=== PATIENT | female | born 1985 | race Caucasian/White ===

== ENCOUNTER 2021-05-21 05:41 | Day surgery (SDC) | payer BC, SELFPAY ==
--- NOTE | 2021-05-13 16:11 | PCM.HP.BLA ---
History and Physical Date of Admission: 05/21/21 Hailey Cabrera MD Physician Specialty: ARCH SUPPORT TECHNICIAN H&P ? Signed Encounter Date: 04/28/2021 Expand AllCollapse All Expand All by Default Hide copied text Hover for details Pre-Op History and Physical ? HPI: The patient is a 36 year old female presenting for pre-operative visit. She is scheduled for , for BREECH, AMA, 39 weeks gestation on 05/14/21. Procedure discussed along with risks, benefits and complications. Other alternatives discussed for management. Consent form signed? Yes. ? ? PAST MEDICAL HISTORY PAST MEDICAL HISTORY Diagnosis Date ? Abnormal Pap smear of cervix ? ? Gestational diabetes mellitus, class A1 02/24/2021 ? History of abnormal Pap smear ? ? IBD (inflammatory bowel disease) ? ? ? PAST SURGICAL HISTORY PAST SURGICAL HISTORY Procedure Laterality Date ? COLONOSCOPY ? 08/15/13 ? ENDOSCOPY PROC ? 08/29/13 ? INSERT IUD ? 2013 ? mirena ? LASER BENIGN LESIONS VULVA ? 2013 ? OFFICE LEEP ? 08/04/11 ? VAGINOSCOPY ? 07/25/12 ? ? ? CURRENT MEDICATIONS Current Outpatient Medications Medication Sig Dispense Refill ? blood sugar diagnostic test strip 1 Strip four times daily. Use as instructed 120 Strip 9 ? Lancets lancets 1 Each four times daily. Use as instructed 120 Each 9 ? Urine Glucose-Ketones Test (KETO-DIASTIX) strp 1 Strip four times daily. 120 Strip 9 ? aspirin, enteric coated (ASPIRIN, ENTERIC COATED) 81 mg EC tablet Take 81 mg by mouth once daily. ? ? ? Nmixranr-Rc-Fes-Fe-FA ( VITAMIN) tab Take 1 tablet by mouth. ? ? ? No current facility-administered medications for this visit. ? ? ALLERGIES: Augmentin [Amoxicillin-Pot Clavulanate] ? PERSONAL HISTORY: SOCIAL HISTORY Social History ? Tobacco Use ? Smoking status: Never Smoker ? Smokeless tobacco: Never Used Vaping Use ? Vaping Use: Never used Substance Use Topics ? Alcohol use: Not Currently ? Drug use: No ? FAMILY HISTORY: FAMILY HISTORY FAMILY HISTORY Problem Relation Age of Onset ? Hypertension Mother ? ? Heart Father ? ? MYOCARDIAL INFARCTION ? Hypertension Father ? ? other (HYPERCHOLESTEROL) Father ? ? other (Ewings sarcoma) Brother ? ? Cancer Maternal Grandmother ? ? UTERINE CANCER ? Diabetes Maternal Grandmother ? ? other (blood clots) Maternal Grandmother ? ? other (CVA) Paternal Grandfather ? ? No Known Problems Maternal Grandfather ? ? No Known Problems Paternal Grandmother ? ? ? REVIEW OF SYMPTOMS: negative except as noted above PHYSICAL EXAMINATION: ? VITALS: Blood pressure 115/83, weight 192 lb (87.1 kg), last menstrual period 08/13/2020. ? GENERAL: The patient is well nourished, well hydrated in no acute distress. , The patient is oriented to time, place, and person. NECK: full range of motion GENITALIA: normal ABD: soft, gravid, non tender. FHR 120bpm ? IMPRESSION: @ 39 weeks EDC 05/20/21 - BREECH, AMA, GDMA1 ? PLAN: Declines ECV, planning for primary cs ? Pt has been counseled on risks/benefits and alternatives of surgery including but not limited to anesthesia, bleeding, infection, injury to pelvic structures including bowel, bladder, ureters and vessels. Pt wishes to proceed with surgery at this time. ? Will confirm breech day of surgery. ? ? I have reviewed and updated past medical and surgical history, medications and allergies Hailey Cabrera MD ?2:41 PM Hailey Cabrera MD Physician Specialty: ARCH SUPPORT TECHNICIAN H&P ? Signed Encounter Date: 05/13/2021 Expand AllCollapse All Expand All by Default Hide copied text Hover for details Pre-Op History and Physical ? HPI: The patient is a 35 year old female presenting for discussion regarding permanent sterilization. Pt currently on ocps- would like to continue with laparoscopic bilateral salpingectomy and continue OCPS for ovarian cyst suppression. ? She is scheduled for laparoscpic bilateral salpingectomy, for desires permanent sterilization on 05/21/21. Procedure discussed along with risks, benefits and complications. Other alternatives discussed for management. Consent form signed? Yes. ? ? PAST MEDICAL HISTORY PAST MEDICAL HISTORY Diagnosis Date ? Bilateral ovarian cysts ? ? ? PAST SURGICAL HISTORY PAST SURGICAL HISTORY Procedure Laterality Date ? DELIVERY ONLY ? 09/19/14 ? , low transverse ? PAST SURGICAL HISTORY OF ? ? ? lazy eye repair ? REMOVAL OF TONSILS,<12 Y/O ? ? ? Tonsillectomy ? ? ? CURRENT MEDICATIONS Current Outpatient Medications Medication Sig Dispense Refill ? norgestimate 0.25 mg-ethinyl estradiol 35 mcg (SPRINTEC) 0.25-35 mg-mcg per tablet Take continuously as directed. 3 Package 6 ? No current facility-administered medications for this visit. ? ? ALLERGIES: Seasonal Allergies ? PERSONAL HISTORY: SOCIAL HISTORY Social History ? Tobacco Use ? Smoking status: Never Smoker ? Smokeless tobacco: Never Used Vaping Use ? Vaping Use: Never used Substance Use Topics ? Alcohol use: No ? Drug use: No ? FAMILY HISTORY: FAMILY HISTORY FAMILY HISTORY Problem Relation Age of Onset ? Lipids Father ? ? Diabetes Other ? ? MGGM ? ? REVIEW OF SYMPTOMS: negative except as noted above PHYSICAL EXAMINATION: ? VITALS: Blood pressure 102/60, height 5' 5 (1.651 m), weight 147 lb (66.7 kg), last menstrual period 03/22/2016. ? GENERAL: The patient is well nourished, well hydrated in no acute distress. , The patient is oriented to time, place, and person. NECK: full range of motion ? IMPRESSION: Desires permanent sterilization ? PLAN: Laparoscopic bilateral salpingectomy ? Pt has been counseled on risks/benefits and alternatives of surgery including but not limited to anesthesia, bleeding, infection, injury to pelvic structures including bowel, bladder, ureters and vessels. Pt wishes to proceed with surgery at this time. ? Risk of regret reviewed covid testing reviewed ? I have reviewed and updated past medical and surgical history, medications and allergies Hailey Cabrera MD ?3:34 PM Office Visit on 05/13/2021 Office Visit on 05/13/2021 Note shared with patient
[2021-05-20 17:30] LABS: Hematocrit 42.4 % (37-47); Hemoglobin 13.9 g/dL (12.0-15.0); Mean Corp Hgb Conc 32.8 g/dL (32-36); Mean Corpuscular Hgb 31.2 pg (27.0-32.0); Mean Corpuscular Volume 95.1 fL (81-99); Mean Platelet Vol. 11.4 fl (6.2-12.0); Platelet Count 303 K/mm3 (150-450); RBC Distribution Width CV 12.2 % (11.6-14.6); RBC Distribution Width SD 42.3 fl (35.1-43.9); Red Blood Count 4.46 M/mm3 (4.2-5.4); White Blood Count 6.8 K/mm3 (4.4-11.0)
[2021-05-21 06:07] LABS: Internal QC Validated? YES +Cl - CLEAR BKGD; Pregnancy, Urine Negative Negative
[2021-05-21 06:28] VITALS: BP 121/77; PULSE 80; RESP 16; TEMP 36.7; O2SAT 95; BMI 24.5
[2021-05-21] MEDS: Lactated Ringers 1,000 ML 100 ML IV (06:35)
--- NOTE | 2021-05-21 07:30 | FALS_PTH ---
PATIENT: ANDRES CAUSEY LOC: [facility] [place] U#:[id number] AGE/SX: 35/F ROOM: RE05/21/[address]: Dr. Hailey Mack, MDDOB: 1985 BED: DIS: 05/21/2021 SPEC #: [id number] RECD: 05/21/21 10:19 STATUS: JOHN KAJAL #: [id number] MITUL: 05/21/21 07:[address]: Hailey Mack DEPT: SURGICAL PATHOLOGY RECD BY: Yenny Guillaume ENTERED: 05/21/21 10:46 SP TYPE: FALL TUBES OTHR DR: Nisreen Primary Care Phys Tissues: Fallopian tube Procedures: Surgery Specimen Level II HEADER OPERATION: Laparoscopic salpingectomy PRE-OP DIAGNOSIS: Sterilization TISSUE SUBMITTED: Bilateral fallopian tubes MICROSCOPIC DIAGNOSIS Right and left fallopian tubes, bilateral salpingectomies: Complete segments of fallopian tubes. One fallopian tube with hemosalpinix. AM:winnie 05/22/2021 MICROSCOPIC DESCRIPTION Slides are reviewed. GROSS DESCRIPTION Received in fixative is one container labeled with the patient's name and designated bilateral fallopian tubes. The specimen consists of two fallopian tubes with an average length of 0.5 cm and has an average diameter of 0.5 cm. Both fallopian tubes have normal fimbriated ends. No mass lesions are identified. Wedger sections are submitted in two cassettes with each cassette containing one fallopian tube. / AM:winnie 05/21/21 TC:5 CPT: 03209 x2
[2021-05-21] MEDS: Bupivacaine Mpf 0.5% 30 ML VIAL (07:40)
[2021-05-21] MEDS: Lubricating Jelly 60 GM Tube 30 GM TOPICAL (07:40)
--- NOTE | 2021-05-21 08:00 | PCM.OPRPT ---
Problems Associated Problem List Diagnoses (1) Encounter for sterilization: (2) Adhesion of omentum: Report of Operation Date of Procedure: 05/21/21 Pre-Operative Diagnosis: desires sterilization Post-Operative Diagnosis: same, omental adhesions Surgery/Procedure Performed:: Lysis of adhesions, Laparoscopic bilateral salpingectomy Description of Surgical Findings:: Significant omental adhesions to the anterior abdominal wall into the anterior cul-de-sac. His adhesions to be lysed prior to the procedure. Once adhesions were taken down was able to visualize the uterus tubes and ovaries. Tubes and ovaries appeared normal bilaterally. Surgeon: Hailey Mack Type of Anesthesia: General and Local Special Medications: 0.5%marcaine Specimen's removed: bilateral fallopian tubes Drains: none Estimated Blood Loss (mL): 5 Fluids Replaced: 700 Description of Procedure: After informed consent was obtained patient was taken to the operating room she was placed in supine position she was given anesthesia. She was then placed in the [facility] stirrups and she was prepped and draped in normal sterile fashion. Bladder was drained prior to the start of procedure. At this time attention was turned to the vaginal portion where weighted speculum placed at posterior fornix vagina single-tooth tenaculum was used to gently grasp the internal the cervix. uterus was gently sounded to approximately 7 cm. Uterine manipulator was placed without difficulty. Legs then placed in parallel with the abdomen the tenaculum and the weighted speculum were removed. 2 towel clamps were placed at level of umbilicus. Marcaine was injected infraumbilical and a small incision was made. The 5 mm trocar was placed under direct visualization. CO2 gas was used to insufflate the intra-abdominal cavity. Upon inspection signficant omental adhesions present to anterior abdominal wall and anterior culdesac-At this time then the LLQ and RLQ ports were placed First Marcaine was injected and small incision was made a knife and the 5 mm trocars were placed. adhesions taken down with enseal and hemostasis appreciated. at this time the uterus tubes and ovaries were visualized and appeared to be normal. At this time then tubes were traced back to the fimbriated ends. Enseal was used to coagulate and ligate along mesosalpinx bilaterally until tubes removed completely. Good hemostasis was appreciated. At this time procedure was deemed complete successful. The gas was desufflated on from the intra-abdominal cavity. The trochars were removed. Skin was closed using 4-0 Monocryl in a subcutaneous fashion. Dermabond glue was placed. Instrument lap and needle counts were correct ?2. The uterine manipulator was removed. Vaginal sweep was performed it was negative. There were no complications anticipated normal postoperative course for this patient. Grafts/Implants Used: none Procedure Start Time: 07:40 Procedure Stop Time: 08:02 Complications none Admit VTE Documentation VTE Present on Admission: Yes VTE Mechan Device Prophylaxis: SCD's VTE Pharm Prophylaxis ordered?: No Reason prophylaxis not ordered:: Procedure Not Indicated
--- NOTE | 2021-05-21 08:07 | EX.PCM.DISCH ---
Discharge Instructions Procedure Other Diet Discharge Diet: No restrictions Activity May resume sexual activity in: 2 weeks Lifting Restrictions: 20-25 lbs Dressing / Incision Call your doctor if your incision/area has: Continuous Slow Oozing, Sudden Increased Bleeding, Increased Pain/ Swelling, Increased Redness, Foul Smelling Discharge and Swelling at the incision site Call your doctor if you observe: Fever of 101 or Higher, Inability to urinate, Inability to have a bowel movement, Using more than 1 pad per hour and Uncontrolled pain Additional Dressing/Incision Instructions:: You have skin glue over your incision sites, do not pick off. You may shower and let the soap and water run over the incision sites and dab dry. Follow Up Care Please Follow Up With: Hailey Mack MD When: 1-2 weeks post OP if you need an appointment please call [phone] Test Results: Test results from this visit will be discussed in further detail at your follow-up appointment, if applicable. Discharge Plan Admission Attending Provider: Hailey Mack Primary Care Provider: Care Physician,Nisreen Primary Discharge Orders/Prescriptions Prescriptions: No Action norgestimate-ethinyl estradiol [Vonda] 0.25-35 mg-mcg tablet 1 tab PO DAILY RF: 0 Referrals / Follow Up: Bruno PhysicianNisreen Primary [Primary Care Provider] - Disposition Disposition (needs filled in before D/C Order can be placed): Home, Self Care
[2021-05-21 08:21] VITALS: BP 111/88; BP 121/77; PULSE 68; RESP 16; TEMP 36.4; O2SAT 100
[2021-05-21 08:30] VITALS: BP 121/77; BP 122/82; PULSE 79; RESP 16; O2SAT 100
[2021-05-21 08:45] VITALS: BP 108/75; BP 121/77; PULSE 70; RESP 16; TEMP 36.4; O2SAT 100
[2021-05-21 09:05] VITALS: BP 121/77
== END 2021-05-21 09:16 | disposition home or self-care (01) ==
LOC: SDC 05:42 → AC 05:42
PROVIDERS: Referring Provider Obstetrics & Gynecology; Visit Provider Obstetrics & Gynecology
PROC: (CPT 58661; principal; 2021-05-21 07:15)
DX: Z30.2 Encounter for sterilization (principal); K66.0 Peritoneal adhesions (postprocedural) (postinfection); K58.9 Irritable bowel syndrome, unspecified
CPT/HCPCS: 58661; 36415; 81025; 85027; 87426; 88302; C9803; J7120; C1760; J2405